=== PATIENT | male | born 1950 | race Caucasian/White ===

== ENCOUNTER → 2016-11-09 | Outpatient (CLI) | payer MEDICARE, OTHER ==
[~2016-11-09] VITALS: Ht 185.4 cm; Wt 100.0 kg
[~2016-11-09] MED LIST: ALTACE 2.5MG T2.5 MG PO; AMBIEN 10MG10 MG PO; COUMADIN 5MG5 MG/TAB PO; DILAUDID 2MG TAB2 MG PO; FLOMAX 0.40.4 MG/CAP PO; FLONASE NASAL S16 GM NS; GABA; MEDROL4 MG PO; NEURONTIN300 MG/CAP PO; OXYCONTIN 20MG20 MG PO; ROXICODONE 55 MG/TAB PO; SKELAXIN 800MG800 MG PO; URECHOLINE PO; ZOCOR 80MG80 MG PO
[2016-11-09 12:19] VITALS: BP 128/96; PULSE 62
[2016-11-09 13:23] VITALS: BP 143/85; PULSE 52
== END ==
LOC: COL.RAD 11:45
DX: M47.22 Other spondylosis with radiculopathy, cervical region (principal)
CPT/HCPCS: J1100

== ENCOUNTER → 2017-03-22 | Outpatient (CLI) | payer MEDICARE, OTHER | LOC: COL.RAD 08:49 | DX: I49.9 Cardiac arrhythmia, unspecified (principal); R40.20 Unspecified coma | CPT/HCPCS: A9585 ==

== ENCOUNTER 2019-12-26 12:59 | Observation (INO) | payer MEDICARE, OTHER ==
[~2019-12-26] VITALS: Ht 185.4 cm; Wt 99.2 kg
--- NOTE | 2019-12-26 15:15 | NUR ---
Admitted from ED per w/c with pneumothorax and fractured ribs. O2 on at 2L/ nasal cannula. No c/o pain at this time.
[2019-12-26 16:17] VITALS: BP 130/79; PULSE 58; TEMP 97.1
--- NOTE | 2019-12-26 18:45 | NUR ---
Medicated with prn Dilaudid and Motrin with pain relief. Uses incentive spirometer to 1750 ml.
[2019-12-26 21:32] VITALS: BP 111/63; PULSE 64; TEMP 98.9
[2019-12-27 00:09] VITALS: BP 117/68; PULSE 54; TEMP 97.8
[2019-12-27 03:35] VITALS: BP 141/74; PULSE 61; TEMP 98.5
[2019-12-27 07:27] VITALS: BP 110/71; PULSE 56; TEMP 97.8
[2019-12-27 07:51] LABS: HEMATOCRIT 43.3 % (42.0-52.0); HEMOGLOBIN 14.6 g/dl (13.5-18.0)
[2019-12-27] MEDS ORDERED: NORCO 325 MG-51 TAB PO (08:13)
--- NOTE | 2019-12-27 08:45 | NUR ---
Dr. Nieves saw patient. Chest x-ray done. Minimal complaints of rib pain with moving. Prescription given. Dismissed to home per w/c with spouse.
== END 2019-12-27 08:45 | disposition home or self-care (01) ==
LOC: COL.ER 12:59 → SURG 14:14
PROVIDERS: ADMIT Surgery
DX: S22.42XA Multiple fractures of ribs, left side, initial encounter for closed fracture (principal); S27.0XXA Traumatic pneumothorax, initial encounter; J43.9 Emphysema, unspecified; S80.812A Abrasion, left lower leg, initial encounter; S80.811A Abrasion, right lower leg, initial encounter; I11.9 Hypertensive heart disease without heart failure; M48.00 Spinal stenosis, site unspecified; Z79.899 Other long term (current) drug therapy; Z86.61 Personal history of infections of the central nervous system; V89.1XXA Person injured in unspecified nonmotor-vehicle accident, nontraffic, initial encounter; Y93.55 Activity, bike riding
CPT/HCPCS: A9284; G0378; J1170; J2405; J3010

== ENCOUNTER → 2020-02-22 | Outpatient (CLI) | payer MEDICARE, OTHER ==
[~2020-02-22] MED LIST changes: +BLUE-EMU LIDOC1 EACH TP; +NORCO 325 MG-51 TAB PO; +[UNRECOGNIZED DRUG - REMARK]
== END ==
LOC: COL.RAD 11:12
DX: Z13.89 Encounter for screening for other disorder (principal); S22.42XA Multiple fractures of ribs, left side, initial encounter for closed fracture; M47.812 Spondylosis without myelopathy or radiculopathy, cervical region; M50.21 Other cervical disc displacement, high cervical region; M48.02 Spinal stenosis, cervical region; J90 Pleural effusion, not elsewhere classified; J98.11 Atelectasis; Z90.49 Acquired absence of other specified parts of digestive tract
CPT/HCPCS: Q9967

== ENCOUNTER → 2020-03-07 | Outpatient (CLI) | payer MEDICARE, OTHER ==
[~2020-03-07] VITALS: Ht 185.4 cm; Wt 100.5 kg
[~2020-03-07] MED LIST changes: +ASPIRIN 81M81 MG/TA2 PO; +CRANBERRY; +NATURAL FLAX1000 MG PO; +OMEGA-3 1000 MG1 CAP PO; +PHARMASSURE ZIN50 MG PO; +PRESERVISION ARED; +THE MEDICINE S200 M2 PO; +VITAMIN B COMPL1 SGL PO; +VITAMINC1000TA PO; +VITD3
[2020-03-07 13:12] VITALS: BP 141/86; PULSE 73
[2020-03-07 14:45] VITALS: BP 152/95; PULSE 67
--- NOTE | 2020-03-07 14:58 | NUR ---
Chest xray good per Dr Tripp, Pt informed of results. Copy of discharge instructions given to pt. Pt verbalized understanding. Pt out to car per ambulation. Denies pain at this time.
== END ==
LOC: COL.RAD 12:45
DX: J90 Pleural effusion, not elsewhere classified (principal); S22.42XA Multiple fractures of ribs, left side, initial encounter for closed fracture
CPT/HCPCS: 19804

== ENCOUNTER 2020-05-08 11:20 | Emergency (ER) | payer MEDICARE, OTHER ==
[~2020-05-08] VITALS: Ht 185.4 cm; Wt 97.7 kg
[2020-05-08 11:31] VITALS: TEMP 98
[2020-05-08 12:10] LABS: INR 1.1 (0.8-3.0); PROTHROMBIN TIME 12.6 SECONDS (9.7-12.8)
[2020-05-08 12:14] LABS: ALANINE AMINOTRANSFERASE 37 U/L (4-49); ALBUMIN 3.5 gm/dL (3.5-5.0); ALKALINE PHOSPHATASE 73 U/L (50-136); ANION GAP 9 mmol/L (7-16); AST,SGOT 27 U/L (15-37); BLOOD UREA NITROGEN 29 mg/dL (9-20); CALCIUM 8.8 mg/dL (8.4-10.2); CARBON DIOXIDE 25 mmol/L (22-30); CHLORIDE 103 mmol/L (98-107); CREATININE, serum 1.37 (0.66-1.25); GLUCOSE 110 mg/dL (74-106); LIPASE 52 U/L (23-300); POTASSIUM 4.5 mmol/L (3.4-5.0); SODIUM 137 mmol/L (137-145); TOTAL PROTEIN 6.3 gm/dL (6.4-8.2)
[2020-05-08 12:25] LABS: BASO % 0.3 % (0.0-2.0); GRAN # 12.1 (1.4-6.5); GRAN % 78.8 % (42.2-75.2); HEMATOCRIT 47.5 % (42.0-52.0); HEMOGLOBIN 15.6 g/dl (13.5-18.0); LYMPH # 1.2 (1.2-3.4); LYMPH % 7.9 % (20.0-51.0); MEAN CELL VOLUME 94 fl (80.0-100.0); MEAN CORPUSCULAR HEMOGLOBIN 31 pg (27.0-31.0); MEAN CORPUSCULAR HGB CONC 33 g/dl (33.0-37.0); MEAN PLATELET VOLUME 9.7 fl (7.4-10.4); MONO # 1.9 (0.1-0.6); MONO % 12.4 % (1.7-9.3); PLATELET COUNT 309 K/mm3 (130-400); RED BLOOD COUNT 5.03 M/mm3 (4.20-5.60); REDCELL DISTRIBUTION WIDTH-CV 14.3 % (11.5-14.5)
[2020-05-08 12:38] LABS: C-REACTIVE PROTEIN 13.7 mg/dL (0.0-0.9); TROPONIN-I < 0.012 ng/mL (0.000-0.035)
[2020-05-08 17:30] VITALS: BP 120/69; PULSE 73
== END 2020-05-08 17:30 | disposition short-term general hospital (02) ==
LOC: COL.ER 11:20
PROVIDERS: Emergency Medicine
DX: J86.9 Pyothorax without fistula (principal); E78.5 Hyperlipidemia, unspecified; I25.10 Atherosclerotic heart disease of native coronary artery without angina pectoris; Z95.9 Presence of cardiac and vascular implant and graft, unspecified; Z90.49 Acquired absence of other specified parts of digestive tract; Z79.82 Long term (current) use of aspirin
CPT/HCPCS: J2543; J3370; J7040; J7050; Q9967